=== PATIENT | male | born 1945 | race Caucasian/White ===

== ENCOUNTER 2021-05-14 15:08 | Inpatient (IN) ==
[2021-05-14] MEDS ORDERED: HEPARIN 5,000 UNIT/1 ML VIAL IV ONE (17:36)
[2021-05-14 18:20] LABS: Basophils % 0.3 % (0.0-0.8); Eosinophils % 0.6 % (0.00-10.9); Hematocrit 47.6 VOL% (42.0-52.0); Hemoglobin 15.5 GM/DL (14.0-18.0); Immature Granulocytes % 0.5 %; Immature Granulocytes Absolute 0.03 #; Lymphocytes # 0.8 10*3/uL (1.4-4.0); Lymphocytes % 11.9 % (21.2-54.2); Mean Corpuscular HGB Conc 32.6 GM/DL (32-36); Mean Corpuscular Volume 86.7 FL (87-102); Mean Platelet Volume 9.8 FL (9.6-12.0); Monocytes % 8.8 % (1.7-12.7); Neutrophils % 77.9 % (38.7-73.9); Platelet Count 169 T/CUMM (130-400); Red Blood Count 5.49 MC/CUMM (3.8-5.5); Red Cell Distribution Width 13.3 % (9.3-17.3); White Blood Count 6.6 T/CUMM (4-12)
[2021-05-14 18:31] LABS: INR 1.1; PT Patient Result 12.3 SECS (10.5-12.0); Partial Thromboplastin Time 29.3 SECS (23.9-33.8)
[2021-05-14 18:36] LABS: Albumin 3.3 G/DL (3.4-5.0); Bilirubin,Total 0.7 MG/DL (0.2-1.0); Calcium 8.8 MG/DL (8.5-10.1); Osmolality,Calculated 277.1 MOS/KG (273-304); Potassium 5.4 MMOL/L (3.5-5.1); Total Protein 7.8 G/DL (6.4-8.2)
[2021-05-14] MEDS ORDERED: SODIUM CHLORIDE 0.9% 1,000 ML IV STA (19:25)
[2021-05-14] MEDS ORDERED: DEXTROSE 50% 25 GM/50 ML VIAL IV PRN (20:13)
[2021-05-14] MEDS ORDERED: ONDANSETRON 4 MG/2 ML VIAL IV PRN (20:13)
[2021-05-14] MEDS ORDERED: GLUCAGON 1 MG VIAL IM PRN (20:13)
[2021-05-14] MEDS ORDERED: DICLOFENAC 1% GEL 100 GM TUBE TOP PRN (20:18)
[2021-05-14] MEDS: SODIUM CHLORIDE 0.9% 1,000 ML IV SCH (22:00)
[2021-05-14] MEDS: HEPARIN DRIP 25,000 UNITS/500 ML PREMIX IV SCH (23:12)
[2021-05-15 03:57] LABS: Basophils % 0.2 % (0.0-0.8); Eosinophils # 0.1 10*3/uL (0.0-0.87); Eosinophils % 1.2 % (0.00-10.9); Hematocrit 38.6 VOL% (42.0-52.0); Immature Granulocytes % 0.2 %; Immature Granulocytes Absolute 0.01 #; Lymphocytes # 0.7 10*3/uL (1.4-4.0); Lymphocytes % 14.2 % (21.2-54.2); Mean Corpuscular HGB Conc 33.7 GM/DL (32-36); Mean Corpuscular Volume 84.6 FL (87-102); Mean Platelet Volume 10.3 FL (9.6-12.0); Monocytes % 10.8 % (1.7-12.7); Neutrophils % 73.4 % (38.7-73.9); Platelet Count 135 T/CUMM (130-400); Red Blood Count 4.56 MC/CUMM (3.8-5.5); Red Cell Distribution Width 13.2 % (9.3-17.3); White Blood Count 4.9 T/CUMM (4-12)
[2021-05-15 04:15] LABS: Alanine Aminotransferase < 9 U/L (16-61); Albumin 2.6 G/DL (3.4-5.0); Alkaline Phosphatase 80 U/L (45-117); Aspartate Amino Transferase 14 U/L (0-37); Blood Urea Nitrogen 30 MG/DL (7-18); Carbon Dioxide 23 MMOL/L (21-32); Estimated Glom Filtration Rate 40 ML/MIN; Glucose 99 MG/DL (74-106); Osmolality,Calculated 282.5 MOS/KG (273-304); Potassium 4.4 MMOL/L (3.5-5.1); Sodium 139 MMOL/L (136-145); Total Protein 6.1 G/DL (6.4-8.2)
[2021-05-15] MEDS: SODIUM CHLORIDE 0.9% 1,000 ML IV SCH ×3 (05:45→21:27)
[2021-05-15] MEDS ORDERED: HEPARIN 5,000 UNIT/1 ML VIAL ONE (06:08)
[2021-05-15] MEDS ORDERED: DIAZEPAM 5 MG TABLET PO ONE (08:49)
[2021-05-15] MEDS ORDERED: SODIUM CHLORIDE 0.45% 1,000 ML IV SCH (09:00)
[2021-05-15] MEDS: PANTOPRAZOLE 40 MG TABLET PO SCH (10:20)
[2021-05-15] MEDS: ASPIRIN EC 81 MG TABLET PO SCH (10:20)
[2021-05-15] MEDS: ACETAMINOPHEN 325 MG TABLET PO PRN (15:49)
[2021-05-15] MEDS: HEPARIN DRIP 25,000 UNITS/500 ML PREMIX IV SCH (15:50)
[2021-05-15] MEDS: ATORVASTATIN 20 MG TABLET PO SCH (21:25)
[2021-05-16] MEDS: HEPARIN DRIP 25,000 UNITS/500 ML PREMIX IV SCH ×2 (05:22→18:18)
[2021-05-16] MEDS: SODIUM CHLORIDE 0.9% 1,000 ML IV SCH ×2 (05:29→18:17)
[2021-05-16 05:48] LABS: Basophils % 0.4 % (0.0-0.8); Eosinophils # 0.1 10*3/uL (0.0-0.87); Eosinophils % 1.6 % (0.00-10.9); Hematocrit 36.6 VOL% (42.0-52.0); Hemoglobin 11.9 GM/DL (14.0-18.0); Immature Granulocytes % 0.6 %; Immature Granulocytes Absolute 0.03 #; Lymphocytes # 0.8 10*3/uL (1.4-4.0); Lymphocytes % 15.8 % (21.2-54.2); Mean Corpuscular HGB Conc 32.5 GM/DL (32-36); Mean Corpuscular Volume 86.5 FL (87-102); Mean Platelet Volume 10.2 FL (9.6-12.0); Monocytes % 10.7 % (1.7-12.7); Neutrophils % 70.9 % (38.7-73.9); Platelet Count 132 T/CUMM (130-400); Red Blood Count 4.23 MC/CUMM (3.8-5.5); Red Cell Distribution Width 13.2 % (9.3-17.3); White Blood Count 5.1 T/CUMM (4-12)
[2021-05-16 06:07] LABS: Calcium 7.9 MG/DL (8.5-10.1); Osmolality,Calculated 281.5 MOS/KG (273-304)
[2021-05-16] MEDS: ASPIRIN EC 81 MG TABLET PO SCH (08:18)
[2021-05-16] MEDS: PANTOPRAZOLE 40 MG TABLET PO SCH (08:18)
[2021-05-16] MEDS: MAGNESIUM HYDROXIDE SUSP 30 ML UDCUP PO PRN (09:20)
[2021-05-16] MEDS ORDERED: fentaNYL 100 MCG/2 ML VIAL IV ONE (12:50)
[2021-05-16] MEDS ORDERED: DIAZEPAM 5 MG TABLET PO ONE (12:50)
[2021-05-16] MEDS ORDERED: MIDAZOLAM 2 MG/2 ML VIAL IV ONE (12:50)
[2021-05-16] MEDS ORDERED: SODIUM CHLORIDE 0.45% 1,000 ML IV SCH (13:00)
[2021-05-16] MEDS ORDERED: HEPARIN/NACL 0.9% 2 UNITS/ML 2,000 UNIT/1,000 ML BAG IV ONE ×2 (13:32→16:48)
[2021-05-16] MEDS ORDERED: HEPARIN/NACL 0.9% 2 UNITS/ML 4,000 UNIT/2,000 ML BAG IV ONE (13:32)
[2021-05-16] MEDS ORDERED: HEPARIN DRIP 25,000 UNITS/500 ML PREMIX IV SCH (14:00)
[2021-05-16] MEDS ORDERED: ALTEPLASE 12 MG in SODIUM CHLORIDE 0.9% 240 ML IV SCH (14:00)
[2021-05-16 14:39] LABS: INR 1.1; PT Patient Result 12.7 SECS (10.5-12.0)
[2021-05-16 14:47] LABS: Partial Thromboplastin Time 70.6 SECS (23.9-33.8)
[2021-05-16] MEDS: ALTEPLASE 12 MG in SODIUM CHLORIDE 0.9% 240 ML IV SCH (17:56)
[2021-05-16 17:59] LABS: INR 1.1; PT Patient Result 12.6 SECS (10.5-12.0)
[2021-05-16 18:17] LABS: Bilirubin,Urine Negative (Negative); Blood, Urine Small mg/dL (Negative); Glucose,Urine (UA) Negative (Negative); Ketones,Urine Negative (Negative); Mucus,Urine Occasional /LPF (Occasional); Nitrite,Urine Negative (Negative); Protein,Urine Negative; RBC,Urine 2 /HPF (0-4); Urine Appearance CLEAR (Clear); Urine Color Straw (Yellow); Urine Specific Gravity 1.018 (1.001-1.035); Urine Urobilinogen < 2.0 EU/DL (0.2-1.0)
[2021-05-16] MEDS: METOPROLOL TARTRATE 25 MG TABLET PO SCH ×2 (18:17→20:29)
[2021-05-16] MEDS: ATORVASTATIN 20 MG TABLET PO SCH (20:29)
[2021-05-16] MEDS: diphenhydrAMINE CAP 50 MG CAPSULE PO PRN (22:28)
[2021-05-17 02:00] LABS: Basophils % 0.2 % (0.0-0.8); Eosinophils % 0.4 % (0.00-10.9); Hematocrit 43.7 VOL% (42.0-52.0); Hemoglobin 14.1 GM/DL (14.0-18.0); Immature Granulocytes % 0.5 %; Immature Granulocytes Absolute 0.05 #; Lymphocytes # 0.8 10*3/uL (1.4-4.0); Lymphocytes % 8.9 % (21.2-54.2); Mean Corpuscular HGB Conc 32.3 GM/DL (32-36); Mean Corpuscular Volume 87.1 FL (87-102); Mean Platelet Volume 9.8 FL (9.6-12.0); Monocytes % 9.9 % (1.7-12.7); Neutrophils % 80.1 % (38.7-73.9); Platelet Count 178 T/CUMM (130-400); Red Blood Count 5.02 MC/CUMM (3.8-5.5); Red Cell Distribution Width 13.2 % (9.3-17.3); White Blood Count 9.5 T/CUMM (4-12)
[2021-05-17 02:13] LABS: INR 1.6; PT Patient Result 17.3 SECS (10.5-12.0)
[2021-05-17] MEDS: SODIUM CHLORIDE 0.9% 1,000 ML IV SCH ×4 (02:20→23:06)
[2021-05-17] MEDS: HYDROmorphone 2 MG/1 ML VIAL IV PRN ×5 (02:20→23:07)
[2021-05-17 02:27] LABS: Calcium 8.1 MG/DL (8.5-10.1); Potassium 4.5 MMOL/L (3.5-5.1)
[2021-05-17 02:41] LABS: Partial Thromboplastin Time 55.2 SECS (23.9-33.8)
[2021-05-17] MEDS: ALTEPLASE 12 MG in SODIUM CHLORIDE 0.9% 240 ML IV SCH (07:10)
[2021-05-17] MEDS ORDERED: SODIUM CHLORIDE 0.9% 1,000 ML IV SCH (07:30)
[2021-05-17] MEDS: ASPIRIN EC 81 MG TABLET PO SCH (08:11)
[2021-05-17] MEDS: METOPROLOL TARTRATE 25 MG TABLET PO SCH (08:19)
[2021-05-17] MEDS: PANTOPRAZOLE 40 MG TABLET PO SCH (09:01)
[2021-05-17] MEDS ORDERED: fentaNYL 100 MCG/2 ML VIAL IV ONE (10:41)
[2021-05-17] MEDS ORDERED: MIDAZOLAM 2 MG/2 ML VIAL IV ONE (10:41)
[2021-05-17] MEDS ORDERED: SODIUM CHLORIDE 0.45% 1,000 ML IV SCH (11:00)
[2021-05-17] MEDS ORDERED: METOPROLOL TARTRATE 25 MG TABLET PO ONE (13:03)
[2021-05-17] MEDS ORDERED: HEPARIN 5,000 UNIT/1 ML VIAL IV PRN (13:05)
[2021-05-17] MEDS ORDERED: HEPARIN 1,000 UNIT/1 ML VIAL ONE (13:05)
[2021-05-17 15:04] LABS: Partial Thromboplastin Time 38.3 SECS (23.9-33.8)
[2021-05-17] MEDS: ACETAMINOPHEN 325 MG TABLET PO PRN (15:05)
[2021-05-17] MEDS: HEPARIN DRIP 25,000 UNITS/500 ML PREMIX IV SCH ×2 (15:46→21:33)
[2021-05-17] MEDS: METOPROLOL TARTRATE 50 MG TABLET PO SCH (20:38)
[2021-05-17] MEDS: ATORVASTATIN 20 MG TABLET PO SCH (20:38)
[2021-05-18 01:24] LABS: Basophils % 0.1 % (0.0-0.8); Hematocrit 36.4 VOL% (42.0-52.0); Hemoglobin 11.9 GM/DL (14.0-18.0); Immature Granulocytes % 0.5 %; Immature Granulocytes Absolute 0.06 #; Lymphocytes # 0.4 10*3/uL (1.4-4.0); Lymphocytes % 3.2 % (21.2-54.2); Mean Corpuscular HGB Conc 32.7 GM/DL (32-36); Mean Corpuscular Volume 86.1 FL (87-102); Mean Platelet Volume 9.9 FL (9.6-12.0); Monocytes % 11.7 % (1.7-12.7); Neutrophils % 84.5 % (38.7-73.9); Platelet Count 136 T/CUMM (130-400); Red Blood Count 4.23 MC/CUMM (3.8-5.5); Red Cell Distribution Width 13.1 % (9.3-17.3)
[2021-05-18 01:43] LABS: Calcium 7.9 MG/DL (8.5-10.1); Osmolality,Calculated 278.7 MOS/KG (273-304); Potassium 4.4 MMOL/L (3.5-5.1)
[2021-05-18 01:58] LABS: Lymphocytes 1 % (20-55); Platelet Estimate Normal; Segmented Neutrophils 94 % (50-85); Total Cells Counted 100
[2021-05-18 01:59] LABS: Hypochromasia Slight; Microcytosis 1+
[2021-05-18 02:01] LABS: Burr Cells 1+; Polychromasia Slight
[2021-05-18] MEDS ORDERED: HEPARIN 5,000 UNIT/1 ML VIAL IV ONE ×2 (02:06→08:45)
[2021-05-18] MEDS: HYDROmorphone 2 MG/1 ML VIAL IV PRN ×5 (05:36→22:36)
[2021-05-18] MEDS: SODIUM CHLORIDE 0.9% 1,000 ML IV SCH (08:15)
[2021-05-18] MEDS: PANTOPRAZOLE 40 MG TABLET PO SCH (08:27)
[2021-05-18] MEDS: METOPROLOL TARTRATE 50 MG TABLET PO SCH (08:27)
[2021-05-18] MEDS: ASPIRIN EC 81 MG TABLET PO SCH (08:28)
[2021-05-18] MEDS ORDERED: METOPROLOL TARTRATE 25 MG TABLET PO ONE (09:16)
[2021-05-18] MEDS ORDERED: hydrALAZINE 20 MG/1 ML VIAL IV PRN (09:20)
[2021-05-18] MEDS: RIVAROXABAN 15 MG TABLET PO SCH (17:30)
[2021-05-18] MEDS: METOPROLOL TARTRATE 25 MG TABLET PO SCH (21:14)
[2021-05-18] MEDS: ATORVASTATIN 20 MG TABLET PO SCH (21:14)
[2021-05-19 02:11] LABS: Basophils % 0.1 % (0.0-0.8); Eosinophils % 0.2 % (0.00-10.9); Hematocrit 33.1 VOL% (42.0-52.0); Hemoglobin 11.2 GM/DL (14.0-18.0); Immature Granulocytes % 0.5 %; Immature Granulocytes Absolute 0.04 #; Lymphocytes # 0.5 10*3/uL (1.4-4.0); Lymphocytes % 6.6 % (21.2-54.2); Mean Corpuscular HGB Conc 33.8 GM/DL (32-36); Mean Corpuscular Volume 85.3 FL (87-102); Mean Platelet Volume 10.5 FL (9.6-12.0); Neutrophils % 82.6 % (38.7-73.9); Platelet Count 133 T/CUMM (130-400); Red Blood Count 3.88 MC/CUMM (3.8-5.5); Red Cell Distribution Width 13.4 % (9.3-17.3); White Blood Count 8.2 T/CUMM (4-12)
[2021-05-19 02:21] LABS: Potassium 4.3 MMOL/L (3.5-5.1)
[2021-05-19] MEDS: PANTOPRAZOLE 40 MG TABLET PO SCH (09:05)
[2021-05-19] MEDS: RIVAROXABAN 15 MG TABLET PO SCH ×2 (09:06→16:46)
[2021-05-19] MEDS: ASPIRIN EC 81 MG TABLET PO SCH (09:06)
[2021-05-19] MEDS: METOPROLOL TARTRATE 25 MG TABLET PO SCH ×2 (09:06→20:00)
[2021-05-19] MEDS: MAGNESIUM HYDROXIDE SUSP 30 ML UDCUP PO PRN (09:11)
[2021-05-19] MEDS: HYDROmorphone 2 MG/1 ML VIAL IV PRN ×2 (09:15→13:54)
[2021-05-19] MEDS ORDERED: SENNA 8.6 MG TABLET PO PRN (10:37)
[2021-05-19] MEDS: POLYETHYLENE GLYCOL POWDER 17 GM PACK PO SCH (10:55)
[2021-05-19] MEDS: oxyCODONE/ACETAMINOPHEN 5-325 MG TABLET PO PRN ×3 (12:46→21:00)
[2021-05-19] MEDS: ATORVASTATIN 20 MG TABLET PO SCH (20:00)
[2021-05-19] MEDS: diphenhydrAMINE CAP 50 MG CAPSULE PO PRN (22:18)
[2021-05-20] MEDS: oxyCODONE/ACETAMINOPHEN 5-325 MG TABLET PO PRN (06:25)
[2021-05-20] MEDS ORDERED: METHYLNALTREXONE 12 MG/0.6 ML VIAL SUBCUT ONE (08:34)
[2021-05-20] MEDS: ASPIRIN EC 81 MG TABLET PO SCH (09:22)
[2021-05-20] MEDS: RIVAROXABAN 15 MG TABLET PO SCH (09:23)
[2021-05-20] MEDS: METOPROLOL TARTRATE 25 MG TABLET PO SCH (09:23)
[2021-05-20] MEDS: POLYETHYLENE GLYCOL POWDER 17 GM PACK PO SCH (09:23)
[2021-05-20] MEDS: PANTOPRAZOLE 40 MG TABLET PO SCH (09:23)
[2021-05-20 12:20] VITALS: BP 111/54
== END 2021-05-20 13:31 | disposition home health service (06) | DRG 167 ==
LOC: N.ED 15:08 → N.EDINP 20:13 → SUATTDRO 20:13 → N.5E 05-15 10:21 → N.CC 05-16 14:19 → N.5E 05-18 16:30
PROVIDERS: ADMIT Internal Medicine; ATTEND Family Medicine
PROC: IRURORE (2021-05-17 12:20)

== ENCOUNTER 2021-05-24 07:00 | Observation (INO) ==
[2021-05-24 07:45] LABS: Bilirubin,Urine Negative (Negative); Blood, Urine Large mg/dL (Negative); Glucose,Urine (UA) Negative (Negative); Ketones,Urine Negative (Negative); Nitrite,Urine Negative (Negative); Protein,Urine 100 MG/DL; RBC,Urine 12704 /HPF (0-4); Urine Appearance Slightly Hazy (Clear); Urine Color Red (Yellow); Urine Specific Gravity 1.011 (1.001-1.035); Urine Urobilinogen < 2.0 EU/DL (0.2-1.0)
[2021-05-24 07:50] LABS: Basophils % 0.3 % (0.0-0.8); Eosinophils # 0.1 10*3/uL (0.0-0.87); Eosinophils % 1.3 % (0.00-10.9); Hematocrit 30.8 VOL% (42.0-52.0); Hemoglobin 9.8 GM/DL (14.0-18.0); Immature Granulocytes % 1.9 %; Immature Granulocytes Absolute 0.13 #; Lymphocytes # 0.8 10*3/uL (1.4-4.0); Lymphocytes % 11.9 % (21.2-54.2); Mean Corpuscular HGB Conc 31.8 GM/DL (32-36); Mean Platelet Volume 9.6 FL (9.6-12.0); Monocytes % 8.9 % (1.7-12.7); Neutrophils % 75.7 % (38.7-73.9); Platelet Count 282 T/CUMM (130-400); Red Cell Distribution Width 13.8 % (9.3-17.3); White Blood Count 6.8 T/CUMM (4-12)
[2021-05-24 08:05] LABS: INR 1.6; PT Patient Result 17.3 SECS (10.5-12.0); Partial Thromboplastin Time 41.2 SECS (23.9-33.8)
[2021-05-24 08:13] LABS: Albumin 2.3 G/DL (3.4-5.0); Bilirubin,Total 0.7 MG/DL (0.2-1.0); Calcium 8.1 MG/DL (8.5-10.1); Osmolality,Calculated 281.5 MOS/KG (273-304); Potassium 4.3 MMOL/L (3.5-5.1); Total Protein 6.2 G/DL (6.4-8.2)
[2021-05-24] MEDS ORDERED: SODIUM CHLORIDE 0.9% 1,000 ML IV STA (09:06)
[2021-05-24] MEDS ORDERED: GLUCAGON 1 MG VIAL IM PRN (09:43)
[2021-05-24] MEDS ORDERED: DEXTROSE 50% 25 GM/50 ML VIAL IV PRN (09:43)
[2021-05-24] MEDS ORDERED: ACETAMINOPHEN 325 MG TABLET PO PRN (09:55)
[2021-05-24] MEDS ORDERED: ONDANSETRON 4 MG/2 ML VIAL IV PRN (09:55)
[2021-05-24 10:51] LABS: Hemoglobin 9.3 GM/DL (14.0-18.0)
[2021-05-24] MEDS: HEPARIN DRIP 25,000 UNITS/500 ML PREMIX IV SCH (10:58)
[2021-05-24 17:43] LABS: Hematocrit 33.4 VOL% (42.0-52.0); Hemoglobin 10.7 GM/DL (14.0-18.0)
[2021-05-24] MEDS ORDERED: HEPARIN 5,000 UNIT/1 ML VIAL IV ONE (18:15)
[2021-05-24] MEDS ORDERED: METOPROLOL TARTRATE 25 MG TABLET PO SCH (21:00)
[2021-05-24 21:54] LABS: Hematocrit 28.9 VOL% (42.0-52.0); Hemoglobin 9.6 GM/DL (14.0-18.0)
[2021-05-25] MEDS: HEPARIN DRIP 25,000 UNITS/500 ML PREMIX IV SCH ×2 (04:08→13:07)
[2021-05-25 04:51] LABS: Basophils % 0.4 % (0.0-0.8); Eosinophils # 0.1 10*3/uL (0.0-0.87); Eosinophils % 1.9 % (0.00-10.9); Hemoglobin 9.9 GM/DL (14.0-18.0); Immature Granulocytes % 2.3 %; Immature Granulocytes Absolute 0.12 #; Lymphocytes % 19.8 % (21.2-54.2); Mean Corpuscular Volume 86.2 FL (87-102); Mean Platelet Volume 9.7 FL (9.6-12.0); Monocytes % 8.9 % (1.7-12.7); Neutrophils % 66.7 % (38.7-73.9); Platelet Count 243 T/CUMM (130-400); Red Blood Count 3.48 MC/CUMM (3.8-5.5); Red Cell Distribution Width 13.8 % (9.3-17.3); White Blood Count 5.2 T/CUMM (4-12)
[2021-05-25] MEDS: PANTOPRAZOLE 40 MG TABLET PO SCH (08:34)
[2021-05-25] MEDS: ATORVASTATIN 20 MG TABLET PO SCH (08:35)
[2021-05-25] MEDS ORDERED: cefTRIAXone 1,000 MG in SODIUM CHLORIDE 0.9% 100 ML IV ONE (09:00)
[2021-05-25] MEDS ORDERED: LIDOCAINE 2% TOP JELLY 20 ML VIAL INTRAURETH ONE (09:43)
[2021-05-25] MEDS: METOPROLOL TARTRATE 25 MG TABLET PO SCH ×2 (11:55→21:01)
[2021-05-25 11:59] LABS: INR 1.3; PT Patient Result 13.9 SECS (10.5-12.0)
[2021-05-25] MEDS ORDERED: WARFARIN 5 MG TABLET PO SCH (15:00)
[2021-05-26] MEDS: HEPARIN DRIP 25,000 UNITS/500 ML PREMIX IV SCH (00:03)
[2021-05-26 04:42] LABS: Basophils % 0.5 % (0.0-0.8); Eosinophils # 0.1 10*3/uL (0.0-0.87); Eosinophils % 1.8 % (0.00-10.9); Hematocrit 29.2 VOL% (42.0-52.0); Hemoglobin 9.5 GM/DL (14.0-18.0); Immature Granulocytes % 2.6 %; Immature Granulocytes Absolute 0.14 #; Lymphocytes # 1.1 10*3/uL (1.4-4.0); Lymphocytes % 19.9 % (21.2-54.2); Mean Corpuscular HGB Conc 32.5 GM/DL (32-36); Mean Corpuscular Volume 87.7 FL (87-102); Mean Platelet Volume 9.8 FL (9.6-12.0); Monocytes % 9.3 % (1.7-12.7); Neutrophils % 65.9 % (38.7-73.9); Platelet Count 217 T/CUMM (130-400); Red Blood Count 3.33 MC/CUMM (3.8-5.5); Red Cell Distribution Width 13.7 % (9.3-17.3); White Blood Count 5.5 T/CUMM (4-12)
[2021-05-26 04:57] LABS: INR 1.2; PT Patient Result 13.6 SECS (10.5-12.0)
[2021-05-26 07:28] VITALS: BP 133/55
[2021-05-26] MEDS: ATORVASTATIN 20 MG TABLET PO SCH (08:19)
[2021-05-26] MEDS: PANTOPRAZOLE 40 MG TABLET PO SCH (08:19)
[2021-05-26] MEDS: METOPROLOL TARTRATE 25 MG TABLET PO SCH (08:19)
[2021-05-26] MEDS ORDERED: WARFARIN 7.5 MG TABLET PO SCH (18:00)
== END 2021-05-26 10:29 | disposition home health service (06) ==
LOC: EDBD → EDUNIT# → N.ED 07:00 → N.EDINP 07:00 → SUATTDRO 09:43 → N.5E 13:45
PROVIDERS: ADMIT Internal Medicine; ATTEND Student in an Organized Health Care Education/Training Program

== ENCOUNTER 2021-05-31 15:32 | Inpatient (IN) ==
[2021-05-31] MEDS ORDERED: MORPHINE 4 MG/1 ML VIAL IV STA (15:59)
[2021-05-31 16:05] LABS: Basophils % 0.1 % (0.0-0.8); Hemoglobin 11.4 GM/DL (14.0-18.0); Immature Granulocytes % 0.7 %; Immature Granulocytes Absolute 0.09 #; Lymphocytes # 0.4 10*3/uL (1.4-4.0); Lymphocytes % 3.2 % (21.2-54.2); Mean Corpuscular HGB Conc 31.7 GM/DL (32-36); Mean Corpuscular Volume 88.2 FL (87-102); Mean Platelet Volume 10.4 FL (9.6-12.0); Monocytes % 6.6 % (1.7-12.7); Neutrophils % 89.4 % (38.7-73.9); Platelet Count 223 T/CUMM (130-400); Red Blood Count 4.08 MC/CUMM (3.8-5.5); Red Cell Distribution Width 14.6 % (9.3-17.3); White Blood Count 13.3 T/CUMM (4-12)
[2021-05-31 16:19] LABS: Albumin 2.8 G/DL (3.4-5.0); Bilirubin,Total 0.7 MG/DL (0.2-1.0); Calcium 8.3 MG/DL (8.5-10.1); Osmolality,Calculated 272.2 MOS/KG (273-304); Potassium 4.7 MMOL/L (3.5-5.1); Total Protein 7.3 G/DL (6.4-8.2)
[2021-05-31 16:23] LABS: PT Patient Result 117.5 SECS (10.5-12.0)
[2021-05-31 16:25] LABS: INR 12.7
[2021-05-31] MEDS ORDERED: ONDANSETRON 4 MG/2 ML VIAL IV STA (16:38)
[2021-05-31] MEDS: cefTRIAXone 1,000 MG in SODIUM CHLORIDE 0.9% 100 ML IV STA ×2 (16:48→17:10)
[2021-05-31] MEDS ORDERED: ONDANSETRON 4 MG/2 ML VIAL IV PRN (16:51)
[2021-05-31] MEDS ORDERED: DEXTROSE 50% 25 GM/50 ML VIAL IV PRN (16:51)
[2021-05-31] MEDS ORDERED: ALBUTEROL 2.5 MG/3 ML NEB RESP TX PRN (16:51)
[2021-05-31] MEDS ORDERED: GLUCAGON 1 MG VIAL IM PRN (16:51)
[2021-05-31] MEDS ORDERED: PHYTONADIONE 5 MG/5 ML ORAL.SYR PO ONE (16:56)
[2021-05-31 17:41] LABS: Lymphocytes 2 % (20-55); Segmented Neutrophils 91 % (50-85); Total Cells Counted 100
[2021-05-31 17:42] LABS: Platelet Estimate Adequate
[2021-05-31] MEDS: AZITHROMYCIN INJ 500 MG in SODIUM CHLORIDE 0.9% 250 ML IV SCH (18:25)
[2021-05-31] MEDS: ALBUTEROL/IPRATROPIUM 3 ML NEB RESP TX SCH (20:20)
[2021-06-01] MEDS: METOPROLOL TARTRATE 25 MG TABLET PO SCH ×3 (00:11→20:30)
[2021-06-01] MEDS: ALBUTEROL/IPRATROPIUM 3 ML NEB RESP TX SCH ×4 (01:33→19:45)
[2021-06-01 06:43] LABS: Basophils % 0.3 % (0.0-0.8); Eosinophils % 0.3 % (0.00-10.9); Hematocrit 33.7 VOL% (42.0-52.0); Hemoglobin 10.7 GM/DL (14.0-18.0); Immature Granulocytes % 0.6 %; Immature Granulocytes Absolute 0.05 #; Lymphocytes # 0.7 10*3/uL (1.4-4.0); Lymphocytes % 7.9 % (21.2-54.2); Mean Corpuscular HGB Conc 31.8 GM/DL (32-36); Mean Corpuscular Volume 89.4 FL (87-102); Monocytes % 9.7 % (1.7-12.7); Neutrophils % 81.2 % (38.7-73.9); Platelet Count 176 T/CUMM (130-400); Red Blood Count 3.77 MC/CUMM (3.8-5.5); Red Cell Distribution Width 14.7 % (9.3-17.3); White Blood Count 8.9 T/CUMM (4-12)
[2021-06-01 06:59] LABS: PT Patient Result 21.5 SECS (10.5-12.0)
[2021-06-01 07:15] LABS: Albumin 2.5 G/DL (3.4-5.0); Bilirubin,Total 0.9 MG/DL (0.2-1.0); Calcium 8.5 MG/DL (8.5-10.1); Osmolality,Calculated 279.8 MOS/KG (273-304); Potassium 4.6 MMOL/L (3.5-5.1); Total Protein 6.5 G/DL (6.4-8.2)
[2021-06-01] MEDS: PANTOPRAZOLE 40 MG TABLET PO SCH (08:54)
[2021-06-01] MEDS: cefTRIAXone 1,000 MG in SODIUM CHLORIDE 0.9% 100 ML IV SCH (16:12)
[2021-06-01] MEDS: AZITHROMYCIN INJ 500 MG in SODIUM CHLORIDE 0.9% 250 ML IV SCH (18:02)
[2021-06-01] MEDS: RIVAROXABAN 15 MG TABLET PO SCH (18:02)
[2021-06-02] MEDS: ALBUTEROL/IPRATROPIUM 3 ML NEB RESP TX SCH ×4 (01:27→19:41)
[2021-06-02 06:22] LABS: Basophils % 0.3 % (0.0-0.8); Eosinophils # 0.1 10*3/uL (0.0-0.87); Eosinophils % 0.7 % (0.00-10.9); Hematocrit 31.9 VOL% (42.0-52.0); Hemoglobin 9.9 GM/DL (14.0-18.0); Immature Granulocytes % 0.6 %; Immature Granulocytes Absolute 0.04 #; Lymphocytes # 0.7 10*3/uL (1.4-4.0); Lymphocytes % 9.5 % (21.2-54.2); Mean Corpuscular Volume 89.4 FL (87-102); Mean Platelet Volume 10.1 FL (9.6-12.0); Monocytes % 8.9 % (1.7-12.7); Platelet Count 171 T/CUMM (130-400); Red Blood Count 3.57 MC/CUMM (3.8-5.5); Red Cell Distribution Width 14.6 % (9.3-17.3); White Blood Count 6.9 T/CUMM (4-12)
[2021-06-02 06:41] LABS: Calcium 8.2 MG/DL (8.5-10.1); Osmolality,Calculated 285.5 MOS/KG (273-304)
[2021-06-02] MEDS: AZITHROMYCIN 250 MG TABLET PO SCH (08:16)
[2021-06-02] MEDS: PANTOPRAZOLE 40 MG TABLET PO SCH (08:17)
[2021-06-02] MEDS: METOPROLOL TARTRATE 25 MG TABLET PO SCH ×2 (09:03→21:26)
[2021-06-02] MEDS: cefTRIAXone 1,000 MG in SODIUM CHLORIDE 0.9% 100 ML IV SCH (15:10)
[2021-06-02] MEDS ORDERED: DOCUSATE SODIUM 100 MG CAPSULE PO PRN (15:15)
[2021-06-02] MEDS: SODIUM CHLORIDE 0.45% 1,000 ML IV SCH (17:38)
[2021-06-02] MEDS: RIVAROXABAN 15 MG TABLET PO SCH (17:38)
[2021-06-02] MEDS: DOCUSATE SODIUM 100 MG CAPSULE PO SCH (21:25)
[2021-06-02] MEDS: SENNA 8.6 MG TABLET PO SCH (21:25)
[2021-06-02] MEDS: POLYETHYLENE GLYCOL POWDER 17 GM PACK PO SCH (21:26)
[2021-06-03] MEDS: ALBUTEROL/IPRATROPIUM 3 ML NEB RESP TX SCH ×4 (02:18→19:16)
[2021-06-03 05:55] LABS: Basophils % 0.5 % (0.0-0.8); Eosinophils # 0.1 10*3/uL (0.0-0.87); Eosinophils % 1.4 % (0.00-10.9); Hematocrit 32.3 VOL% (42.0-52.0); Hemoglobin 10.3 GM/DL (14.0-18.0); Immature Granulocytes % 0.5 %; Immature Granulocytes Absolute 0.03 #; Lymphocytes # 0.6 10*3/uL (1.4-4.0); Lymphocytes % 10.6 % (21.2-54.2); Mean Corpuscular HGB Conc 31.9 GM/DL (32-36); Mean Platelet Volume 10.5 FL (9.6-12.0); Monocytes % 10.8 % (1.7-12.7); Neutrophils % 76.2 % (38.7-73.9); Platelet Count 177 T/CUMM (130-400); Red Blood Count 3.67 MC/CUMM (3.8-5.5); Red Cell Distribution Width 14.5 % (9.3-17.3); White Blood Count 5.7 T/CUMM (4-12)
[2021-06-03 06:59] LABS: Calcium 8.7 MG/DL (8.5-10.1); Potassium 4.2 MMOL/L (3.5-5.1)
[2021-06-03] MEDS: PANTOPRAZOLE 40 MG TABLET PO SCH (09:02)
[2021-06-03] MEDS: DOCUSATE SODIUM 100 MG CAPSULE PO SCH ×2 (09:02→20:11)
[2021-06-03] MEDS: METOPROLOL TARTRATE 25 MG TABLET PO SCH ×2 (09:02→20:11)
[2021-06-03] MEDS: POLYETHYLENE GLYCOL POWDER 17 GM PACK PO SCH ×2 (09:02→20:10)
[2021-06-03] MEDS: AZITHROMYCIN 250 MG TABLET PO SCH (09:02)
[2021-06-03] MEDS: LUBIPROSTONE 24 MCG CAPSULE PO SCH ×3 (15:10→20:15)
[2021-06-03] MEDS: TAMSULOSIN 0.4 MG CAPSULE PO SCH ×2 (15:11→15:32)
[2021-06-03] MEDS: RIVAROXABAN 15 MG TABLET PO SCH (17:05)
[2021-06-03] MEDS: SODIUM CHLORIDE 0.45% 1,000 ML IV SCH (17:05)
[2021-06-03] MEDS: cefTRIAXone 1,000 MG in SODIUM CHLORIDE 0.9% 100 ML IV SCH (17:05)
[2021-06-03] MEDS: SENNA 8.6 MG TABLET PO SCH (20:11)
[2021-06-04] MEDS: ALBUTEROL/IPRATROPIUM 3 ML NEB RESP TX SCH ×3 (01:00→14:10)
[2021-06-04 06:30] LABS: Basophils % 0.6 % (0.0-0.8); Eosinophils # 0.1 10*3/uL (0.0-0.87); Eosinophils % 0.9 % (0.00-10.9); Hematocrit 29.9 VOL% (42.0-52.0); Hemoglobin 9.4 GM/DL (14.0-18.0); Immature Granulocytes % 0.4 %; Immature Granulocytes Absolute 0.02 #; Lymphocytes # 0.7 10*3/uL (1.4-4.0); Lymphocytes % 12.2 % (21.2-54.2); Mean Corpuscular HGB Conc 31.4 GM/DL (32-36); Mean Corpuscular Volume 88.5 FL (87-102); Monocytes % 10.7 % (1.7-12.7); Neutrophils % 75.2 % (38.7-73.9); Platelet Count 172 T/CUMM (130-400); Red Blood Count 3.38 MC/CUMM (3.8-5.5); Red Cell Distribution Width 14.5 % (9.3-17.3); White Blood Count 5.3 T/CUMM (4-12)
[2021-06-04 07:04] LABS: Calcium 8.5 MG/DL (8.5-10.1); Potassium 4.5 MMOL/L (3.5-5.1)
[2021-06-04] MEDS ORDERED: LINACLOTIDE 145 MCG CAPSULE PO SCH (07:30)
[2021-06-04] MEDS: POLYETHYLENE GLYCOL POWDER 17 GM PACK PO SCH (08:47)
[2021-06-04] MEDS: DOCUSATE SODIUM 100 MG CAPSULE PO SCH (08:47)
[2021-06-04] MEDS: LUBIPROSTONE 24 MCG CAPSULE PO SCH (08:47)
[2021-06-04] MEDS: PANTOPRAZOLE 40 MG TABLET PO SCH (10:20)
[2021-06-04] MEDS: AZITHROMYCIN 250 MG TABLET PO SCH (10:20)
[2021-06-04] MEDS: TAMSULOSIN 0.4 MG CAPSULE PO SCH (10:20)
[2021-06-04] MEDS: METOPROLOL TARTRATE 25 MG TABLET PO SCH (11:06)
[2021-06-04 11:49] VITALS: BP 110/55
[2021-06-04] MEDS ORDERED: RIVAROXABAN 15 MG TABLET PO ONE (14:10)
== END 2021-06-04 14:48 | disposition home health service (06) | DRG 194 ==
LOC: EDBD → EDUNIT# → N.ED 15:32 → N.EDINP 16:51 → SUATTDRO 16:51 → N.3E 17:35
PROVIDERS: ADMIT Internal Medicine; ATTEND Hospitalist